=== PATIENT | male | born 1970 | race Caucasian/White ===

== ENCOUNTER 2025-09-27 06:23 | Emergency (ER) | payer OTHER, SELFPAY ==
[~2025-09-27] VITALS: Ht 195.6 cm; Wt 61.3 kg
[2025-09-27 07:05] LABS: KETONE, URINE AUTO RFX NEGATIVE (NEGATIVE); LEUKOCYTE ESTERASE UR AUTO RFX NEGATIVE (NEGATIVE); MUCUS, URINE RFX SMALL (NEGATIVE); NITRITE, URINE AUTO RFX NEGATIVE (NEGATIVE); RBC, URINE AUTO RFX TNTC /HPF (0-3); SQUAM EPITHELIAL CELL UR AURFX 0 /HPF (0-6); WBC, URINE AUTO RFX 1 /HPF (0-3)
[2025-09-27] MEDS ORDERED: HOME MED LIST COMPLETE! XX SCH (10:55)
[2025-09-27 11:06] LABS: BASO # 0.0 10^3/uL (0.0-0.2); BASO % 0.4 % (0.0-1.0); EOS # 0.1 10^3/uL (0.0-0.5); EOS % 0.5 % (0.0-3.0); LYMPH # 1.8 10^3/uL (1.5-5.0); LYMPH % 19.1 % (24.0-44.0); MONO # 0.8 10^3/uL (0.0-0.8); MONO % 8.1 % (2.0-8.0); NEUTROPHILS # 6.8 10^3/uL (1.5-8.5); NEUTROPHILS % 71.6 % (36.0-66.0); PLATELET COUNT, AUTOMATED 281 10^3/uL (150-450)
[2025-09-27] MEDS ORDERED: ISOVUE-370 76% 100 ML VIAL As Ordered ONE (11:13)
[2025-09-27 11:24] LABS: CALCIUM LEVEL 9.0 MG/DL (8.5-10.1); CARBON DIOXIDE LEVEL 28 MMOL/L (20-31); CHLORIDE LEVEL 103 MMOL/L (98-107); CREATININE FOR GFR 0.92 MG/DL (0.70-1.30); GLOMERULAR FILTRATION RATE > 90.0 (>56); POTASSIUM SERUM 4.5 MMOL/L (3.5-5.1); SODIUM LEVEL 138 MMOL/L (136-145)
[2025-09-27] MEDS: ONDANSETRON 4MG/2ML VIAL IV ONE (12:33)
[2025-09-27] MEDS: MORPHINE 4 MG/ML 1 ML VIAL IV PRN (12:34)
[2025-09-27] MEDS ORDERED: HYDR-3713 PO (13:17)
[2025-09-27] MEDS ORDERED: TAMS-18 PO (13:17)
[2025-09-27] MEDS ORDERED: ONDA-282 PO (13:17)
[2025-09-27 13:24] VITALS: BP 101/60; O2SAT 97
[2025-09-27 13:35] VITALS: TEMP 96.8
[2025-09-27] MEDS: MORPHINE 4 MG/ML 1 ML VIAL IV ONE (13:35)
[2025-09-27] MEDS: TAMSULOSIN 0.4 MG CAP PO ONE (13:36)
== END 2025-09-27 14:02 | disposition home or self-care (01) ==
LOC: M ED 06:23
DX: N20.2 Calculus of kidney with calculus of ureter (principal); J45.909 Unspecified asthma, uncomplicated; F17.200 Nicotine dependence, unspecified, uncomplicated
CPT/HCPCS: 74177; 80047; 80048; 81001; 85025; 96374; 96375; 96376; 99284; J2405; Q9967